=== PATIENT | male | born 1980 | race Caucasian/White ===

== ENCOUNTER 2023-07-13 14:02 | Outpatient (OUT) | payer OTHER, SELFPAY ==
--- NOTE | 2023-07-13 14:15 | XR_ITS ---
The [address] [address] Patient Name: NAT BACH MRN: [id number] date: 1980 Sex: M Assigned Patient Location: LAB Current Patient Location: LAB Accession/Order Number: [id number] Exam Date: 07/13/2023 14:18 Report Date: 07/13/2023 15:39 At the request of: CHRIS BUTCHER Procedure: XR hand RT 2V EXAM: XR hand RT 2V HISTORY: Right Hand Pain This is dictated under combined report. Please see report describing right wrist and right hand dictated the same day. Electronically authenticated by: CHELO SUAZO Date: 07/13/2023 15:39
--- NOTE | 2023-07-13 14:15 | XR_ITS ---
The [address] [address] Patient Name: NAT BACH MRN: [id number] date: 1980 Sex: M Assigned Patient Location: LAB Current Patient Location: LAB Accession/Order Number: [id number] Exam Date: 07/13/2023 14:18 Report Date: 07/13/2023 15:38 At the request of: CHRIS BUTCHER Procedure: XR wrist RT 2V PROCEDURE: XR WRIST AND HAND RT 2V DATE: 07/13/2023 1:18 PM CDT COMPARISONS: None CLINICAL INDICATION: Right Wrist Pain FINDINGS: There is no evidence of fractures or other osseous abnormalities. There is evidence of slight first carpometacarpal degenerative change. There is evidence of mild to moderate first interphalangeal degenerative change. No other osseous abnormalities are identified. XR/XR wrist RT 2V IMPRESSION: Right wrist and hand radiographs show no evidence of acute abnormalities. Mild degenerative changes as discussed above. Electronically authenticated by: CHELO SUAZO Date: 07/13/2023 15:38
== END 2023-07-13 14:03 | disposition home or self-care (01) ==
LOC: LAB 14:04
PROVIDERS: PCP Internal Medicine; Visit Provider Internal Medicine
DX: M25.531 Pain in right wrist (principal); M79.641 Pain in right hand
CPT/HCPCS: 73100; 73120

== ENCOUNTER 2023-07-14 06:36 | Outpatient (OUT) | payer OTHER, SELFPAY ==
[2023-07-14 07:01] LABS: Basophils Absolute Auto 0.1 10^3/uL (0.0-0.1); Basophils Percent Auto 1.2 % (0.2-2.0); Eosinophils Absolute Auto 0.2 10^3/uL (0.0-0.7); Eosinophils Percent Auto 3.6 % (0.9-7.0); Hemoglobin 15.1 g/dL (14.0-18.0); Immature Granulocytes Abs Auto 0.02 10^3/uL (0.00-0.03); Immature Granulocytes Pct Auto 0.3 % (0.0-0.5); Lymphocytes Absolute Auto 2.3 10^3/uL (1.2-3.8); Lymphocytes Percent Auto 40.2 % (20.5-60.0); Mean Corpuscular HGB Conc 34.3 g/dL (29.9-35.2); Mean Corpuscular Hemoglobin 28.9 pg (25.9-34.0); Mean Corpuscular Volume 84.1 fL (80.0-94.0); Mean Platelet Volume 9.5 fL (9.5-13.5); Monocytes Absolute Auto 0.5 10^3/uL (0.3-0.8); Monocytes Percent Auto 8.2 % (1.7-12.0); Neutrophils Absolute Auto 2.7 10^3/uL (1.4-6.5); Neutrophils Percent Auto 46.5 % (43.0-75.0); Platelet Count 253 10^3/uL (150-450); Red Blood Count 5.23 10^6/uL (4.70-6.10); White Blood Count 5.8 10^3/uL (4.0-11.0)
[2023-07-14 08:24] LABS: Alanine Aminotransferase 42 U/L (16-63); Albumin Level 3.6 g/dL (3.4-5.0); Alkaline Phosphatase 81 U/L (46-116); Anion Gap 14.7; Aspartate Amino Transferase 22 U/L (15-37); BUN Creatinine Ratio 22.8; Bilirubin Total 1.1 mg/dL (0.2-1.0); Calcium 8.4 mg/dL (8.5-10.1); Carbon Dioxide 24.4 mmol/L (21.0-32.0); Chloride 103 mmol/L (98-107); Chol HDL Ratio 3.9; Cholesterol 176 mg/dL (<=200); Estimated GFR (African America >60 (>=60); Estimated GFR (Non-African Ame >60 (>=60); Globulin 3.7 g/dL; Glucose 107 mg/dL (74-106); HDL Cholesterol 45 mg/dL (40-60); Potassium 4.1 mmol/L (3.5-5.1); Sodium 138 mmol/L (136-145); Total Protein 7.3 g/dL (6.4-8.2); Triglycerides 158 mg/dL (<=150); VLDL CHOLESTEROL 31.6 mg/dL
== END 2023-07-14 06:37 | disposition home or self-care (01) ==
LOC: LAB 06:36
PROVIDERS: PCP Internal Medicine; Visit Provider Internal Medicine
DX: Z00.00 Encounter for general adult medical examination without abnormal findings (principal)
CPT/HCPCS: 36415; 80053; 80061; 85025

== ENCOUNTER 2024-08-15 10:46 | Outpatient (OUT) | payer OTHER, SELFPAY ==
--- NOTE | 2024-08-15 11:03 | ECG_ITS ---
The [facility] Test Date: 2024-08-15 Pat Name: NAT BACH Department: Room: - Gender: Male [employer]or Relations Associate: : 1980 Requested By: Good Butcher Order Number: [id number] Reading MD: GOOD BUTCHER Measurements Intervals [place] Rate: 68 P: 14 IN: 158 QRS: 7 QRSD: 114 T: 13 QT: 388 QTc: 415 Interpretive Statements SINUS RHYTHM MODERATE INTRAVENTRICULAR CONDUCTION DELAY [110+ ms QRS DURATION] No previous ECG available for comparison Electronically Signed On 08-15-2024 23:10:42 EST by GOOD BUTCHER
--- NOTE | 2024-08-15 11:57 | P.GSHP_ITS ---
History of Present Illness History of Present Illness Chief complaint: umbilical hernia Narrative: Mr. Kuldeep Henry presents to preadmission testing for surgical clearance of umbilical hernia. He reports no complaints of pain today but does report pain and discomfort with lifting pushing and pulling intermittently he is scheduled for ventral hernia repair with Dr. Mckinnon on August 29, 2024 Review of Systems ROS Narrative REVIEW OF SYSTEMS: Negative except as stated in HPI, ten or more systems reviewed. Constitutional: No fever, chills, weakness ENT: Reports no drainage or discharge Cardiovascular: No edema, chest pain, palpitations, or activity intolerance Respiratory: No shortness of breath, cough, or wheezing. Musculoskeletal: No joint pain or swelling Gastrointestinal: No abdominal pain, constipation, diarrhea, or vomiting Genitourinary: No dysuria or hematuria Neurological: No numbness, tingling, weakness, or headache Psychiatric: No mood changes PFSH PFS Medical History (Updated 08/15/24 @ 12:07 by Nay Kumar) Unspecified injury of extensor muscle, fascia and tendon of right thumb at wrist and hand level, initial encounter ?S66.201A - Unspecified injury of extensor muscle, fascia and tendon of right thumb at wrist and hand level, initial encounter (ICD-10) Seasonal allergies ?J30.2 - Other seasonal allergic rhinitis (ICD-10) GERD (gastroesophageal reflux disease) ?K21.9 - Gastro-esophageal reflux disease without esophagitis (ICD-10) Constipation ?K59.00 - Constipation, unspecified (ICD-10) Ventral hernia ?K43.9 - Ventral hernia without obstruction or gangrene (ICD-10) Surgical History (Updated 08/15/24 @ 11:50 by Nay Kumar) H/O endoscopy ?Z98.890 - Other specified postprocedural states (ICD-10) History of amputation ?Z89.9 - Acquired absence of limb, unspecified (ICD-10) History of wisdom tooth extraction ?K08.409 - Partial loss of teeth, unspecified cause, unspecified class (ICD- 10) H/O vasectomy ?Z98.52 - Vasectomy status (ICD-10) Family History (Updated 08/15/24 @ 11:24 by Nay Kumar) Other Family history of Alzheimer's disease Family history of diabetes mellitus Social History (Updated 08/15/24 @ 11:12 by Nay Kumar) Within the past year, how often did you have a drink containing alcohol: 2-3 times a week Within the past year, how often did you have six or more drinks on one occasion: weekly Smoking status: Never smoker Non-prescribed substance use: cannabis (any form) Non-prescribed substance use details: less than 1 time per month Previous occupational history: [employer] / gut[employer] Highest level of school completed/degree received: some college, no degree Meds Home Medications and Allergies Allergies Allergy/AdvReac Type Severity Reaction Status Date / Time No Known Drug Allergies Allergy Verified 08/15/24 11:06 Exam Narrative Exam Narrative: Constitutional: Awake, alert, comfortable, well-appearing, nontoxic, interactive, vital signs as charted Head: Normocephalic, atraumatic Eyes: Conjunctiva and lids normal to inspection, pupils normal ENT: Tympanic membranes pearly dalal, nonerythematous, noninjected, naris patent, posterior oropharynx clear, oral mucosa moist Neck: Supple, normal appearance, normal range of motion, no meningeal signs, no lymphadenopathy Respiratory: No respiratory distress, breath sounds clear Cardiovascular: Regular rate and rhythm, strong and regular heart tones Abdomen: Nontender, normal bowel sounds, soft, no CVA tenderness, 2.5 cm size hernia easily reducible without incarceration Musculoskeletal: Normal gait, no swelling or edema Skin: No rashes or induration, no lesions, only visible skin inspected Neuro: No neurological deficits, normal sensation Psychiatric: Oriented ?3, normal affect Assessment and Plan Assessment and Plan (1) Ventral hernia: Qualifiers: Obstruction and gangrene presence: without obstruction or gangrene Qualified Code(s): K43.9 - Ventral hernia without obstruction or gangrene Plan Umbilical hernia without obstruction and without gangrene he is scheduled with Dr. Mckinnon for robotic assisted laparoscopic umbilical\ventral hernia repair with mesh procedure on August 29, 2024
--- NOTE | 2024-08-15 12:09 | PM.PRESUREVA ---
History of Present Illness History of Present Illness Chief complaint: umbilical hernia [facility] Medical History (Updated 08/15/24 @ 12:07 by Nay Kumar) Unspecified injury of extensor muscle, fascia and tendon of right thumb at wrist and hand level, initial encounter ?S66.201A - Unspecified injury of extensor muscle, fascia and tendon of right thumb at wrist and hand level, initial encounter (ICD-10) Seasonal allergies ?J30.2 - Other seasonal allergic rhinitis (ICD-10) GERD (gastroesophageal reflux disease) ?K21.9 - Gastro-esophageal reflux disease without esophagitis (ICD-10) Constipation ?K59.00 - Constipation, unspecified (ICD-10) Ventral hernia ?K43.9 - Ventral hernia without obstruction or gangrene (ICD-10) Surgical History (Updated 08/15/24 @ 11:50 by Nay Kumar) H/O endoscopy ?Z98.890 - Other specified postprocedural states (ICD-10) History of amputation ?Z89.9 - Acquired absence of limb, unspecified (ICD-10) History of wisdom tooth extraction ?K08.409 - Partial loss of teeth, unspecified cause, unspecified class (ICD-10) H/O vasectomy ?Z98.52 - Vasectomy status (ICD-10) Family History (Updated 08/15/24 @ 11:24 by Nay Kumar) Other Family history of Alzheimer's disease Family history of diabetes mellitus Social History (Updated 08/15/24 @ 11:12 by Nay Kumar) Within the past year, how often did you have a drink containing alcohol: 2-3 times a week Within the past year, how often did you have six or more drinks on one occasion: weekly Smoking status: Never smoker Non-prescribed substance use: cannabis (any form) Non-prescribed substance use details: less than 1 time per month Previous occupational history: [employer] / [employer] Highest level of school completed/degree received: some college, no degree Meds Home Medications and Allergies Allergies Allergy/AdvReac Type Severity Reaction Status Date / Time No Known Drug Allergies Allergy Verified 08/15/24 11:06 Assessment and Plan Assessment and Plan (1) Ventral hernia: Qualifiers: Obstruction and gangrene presence: without obstruction or gangrene Qualified Code(s): K43.9 - Ventral hernia without obstruction or gangrene Plan Umbilical hernia without obstruction and without gangrene he is scheduled with Dr. Mckinnon for robotic assisted laparoscopic umbilical\ventral hernia repair with mesh procedure on August 29, 2024
== END 2024-08-15 10:47 | disposition home or self-care (01) ==
LOC: PST 10:48
PROVIDERS: PCP Internal Medicine; Visit Provider Surgery
DX: Z01.810 Encounter for preprocedural cardiovascular examination (principal); K42.9 Umbilical hernia without obstruction or gangrene
CPT/HCPCS: 93005

== ENCOUNTER 2024-08-29 06:25 | Day surgery (SDC) | payer OTHER, SELFPAY ==
[2024-08-15 11:13] VITALS: BP 119/80; PULSE 76; TEMP 36.3; O2SAT 95; BMI 37.1
[2024-08-29] VITALS (15 sets, daily range): BP systolic 123–154; BP diastolic 72–107; PULSE 59–93; TEMP 36.1–36.4; O2SAT 93–97; BMI 37.5
--- OUTSIDE RECORDS SUMMARY | 2024-08-29 06:27 | XMS_ITS | CCD ---
Author Organization [facility] Inform ion Partnership [facility] Care Team Providers Care Bariatric Physician Name Role Phone ELLIOT, DR PEREZ Admitting Unavailable ELLIOT, DR PEREZ Attending Unavailable ELLIOT, DR PEREZ Primary Care Unavailable ELLIOT, DR PEREZ Consulting Unavailable ELLIOT, DR PEREZ Admitting Unavailable ELLIOT, DR PEREZ Attending Unavailable ELLIOT, DR PEREZ Primary Care Unavailable ELLIOT, DR PEREZ Consulting Unavailable RAMUANDER, TONIE Admitting Unavailable HIGHLANDER, TONIE Attending Unavailable ADRIANA, DR NEHA Cary Consulting Unavailable HIGHLANDER, TONIE Consulting Unavailable LEATHAM, HUSSEIN Admitting Unavailable LEATHAM, HUSSEIN Attending Unavailable ELLIOT, DR PEREZ Primary Care Unavailable GOOD ZARATE Primary Care Physician Good Zarate Unavailable Anna Weldon Attending Unavailable FLORIDALMA MATAMOROS Attending Unavailable Anna Weldon Attending Unavailable GOOD ZARATE Referring Unavailable Maria Luz Martínez Unavailable STEPHIE ALEXANDRA Attending Unavailable Allergies Allergy Classification Reported Allergen(s) Allergy Type Date of Onset Reaction(s) Facility (1 source) No Known Medication Allergies; Translations: [No Known Medication Allergies] Propensity to adverse reactions (disorder) [facility] Repository Medications Current Medications Medication Drug Class(es) Dates Sig (Normalized) Sig (Original) brompheniramine maleate 0.4 mg/ml / dextromethorphan hydrobromide 2 mg/ml / pseudoephedrine hydrochloride 6 mg/ml oral solution (5 sources) alpha-Adrenergic Agonist, Uncompetitive L-mpuvgf-X-aspartate Receptor Antagonist, Sigma-1 Agonist Start: 02-28-2023 take 10 mL by mouth every six hours Pseudoeph-Bromp hen-DM 30-2-10 MG/5ML 10 mL Orally every 6 hours for 5 days Feb, Active cephalexin 500 mg oral capsule (2 sources) Cephalosporin Antibacterial Start: 11-25-2022 take 1 capsule by mouth twice daily Keflex 500 mg Cap 500 mg = 1 cap(s), Oral, BID, start day prior to procedure, # 4 cap(s), Refills(s) 0, [id number] 180, cm, 11/25/22 10:15:00 EST, Height/Length Dosing, 125, kg, 11/25/22 10:15:00 EST, Weight Dosing Start Date: 11/25/22 Status: Ordered diazePAM 10 mg oral tablet (1 source) Benzodiazepine Start: 11-25-2022 Valium 10 mg Tab 10 mg = 1 tab(s), Oral, Once, PRN for anxiety, Take 1 hr prior to procedure, # 1 tab(s), Refills(s) 0, Pharmacy: [id number], 180, cm, 11/25/22 10:15:00 EST, Height/Length Dosing, 125, kg, 11/25/22 10:15:00 EST, Weight Dosing Start Date: 11/25/22 Status: Ordered meloxicam 15 mg oral tablet (3 sources) Nonsteroidal Anti-inflammatory Drug Start: 11-19-2022 meloxicam 15 mg Tab Refills(s) 0 Start Date: 11/19/22 Status: Ordered traMADol hydrochloride 50 mg oral tablet (2 sources) Opioid Agonist Start: 11-25-2022 take 1 tablet by mouth every six hours traMADOL 50 mg Tab 50 mg = 1 tab(s), Oral, q6hr, severe pain, # 6 tab(s), Refills(s) 0, [id number] 180, cm, 11/25/22 10:15:00 EST, Height/Length Dosing, 125, kg, 11/25/22 10:15:00 EST, Weight Dosing Start Date: 11/25/22 Status: Ordered Completed/Discontinued Medications Medication Drug Class(es) Dates Sig (Normalized) Sig (Original) amLODIPine 5 mg oral tablet (2 sources) Dihydropyridine Calcium Channel [place] Start: 06-07-2024 End: 06-07-2024 take 5 mg by mouth once daily Amlodipine Discontinued 5 MG PO Daily June 07, 2024 12:00am June 07, 2024 3:00pm Start: 08-24-2023 take 1 tablet by meli th every twenty-four hours amLODIPine Besylate 5 MG 1 tablet Orally Once a day for 30 days Jul, Active etodolac 500 mg oral tablet (5 sources) Nonsteroidal Anti-inflammatory Drug Start: 06-07-2024 End: 06-07-2024 take 500 mg by mouth twice daily Etodolac Discontinued 500 MG PO Twice daily June 07, 2024 12:00am June 07, 2024 3:00pm Start: 07-13-2023 take 1 tablet by meli th twice daily at mealtime as needed for pain Etodolac 500 MG 1 tablet with food Orally Twice a day as needed for pain for 30 days Jun, Active Problems Active Problems Problem Classification Problem Date Documented Date Episodic/Chronic Abdominal hernia (1 source) Umbilical hernia without obstruction or gangrene Episodic Contraceptive and procreative management (11 sources) Contraception status; Translations: [Encounter for other general counseling and advice on contraception] Onset: 11-25-2022 Episodic Essential hypertension (2 sources) Essential hypertension; Translations: [Essential (primary) hypertension] Chronic Immunizations and screening for infectious disease (1 source) Encounter for immunization; Translations: [ENCOUNTER FOR IMMUNIZATION] Onset: 09-04-2021 Episodic Other circulatory disease (6 sources) Elevated blood-pressure reading without diagnosis of hypertension; Translations: [Elevated blood-pressure reading, without diagnosis of hypertension] Episodic Other circulatory disease (1 source) Elevated blood-pressure reading, without diagnosis of hypertension Episodic Other connective tissue disease (6 sources) Pain in limb; Translations: [Pain in right foot] Episodic Other connective tissue disease (6 sources) Plantar fasciitis of right foot; Translations: [Plantar fascial fibromatosis] Episodic Other connective tissue disease (1 source) Pain in right hand Episodic Other nervous system disorders (1 source) Carpal tunnel syndrome; Translations: [Carpal tunnel syndrome, right upper limb] Chronic Other nervous system disorders (1 source) Carpal tunnel syndrome, right upper limb Chronic Other non-traumatic joint disorders (1 source) Pain in right wrist Episodic Other nutritional; endocrine; and metabolic disorders (6 sources) Body mass index 30+ - obesity; Translations: [Obesity, unspecified] Chronic Other nutritional; endocrine; and metabolic disorders (6 sources) Morbid obesity; Translations: [Morbid (severe) obesity due to excess calories] Chronic Other nutritional; endocrine; and metabolic disorders (1 source) Obesity, unspecified Chronic Other nutritional; endocrine; and metabolic disorders (1 source) Severe obesity; Translations: [Morbid (severe) obesity due to excess calories] Chronic Other nutritional; endocrine; and metabolic disorders (1 source) Body mass index 40+ - severely obese; Translations: [Body mass index (BMI) 40.0-44.9, adult] Chronic Other nutritional; endocrine; and metabolic disorders (1 source) Morbid (severe) obesity due to excess calories Chronic Other nutritional; endocrine; and metabolic disorders (1 source) Body mass index (BMI) 40.0-44.9, adult Chronic Other screening for suspected conditions (not mental disorders or infectious disease) (1 source) Encounter for screening for malignant neoplasm of colon Episodic Other upper respiratory infections (2 sources) Acute pharyngitis, unspecified; Translations: [Acute upper respiratory infection, unspecified] Episodic Sprains and strains (6 sources) Strain of muscle, fascia and tendon of lower back, initial encounter; Translations: [Acute myofascial strain of lumbosacral region, initial encounter] Episodic Unclassified (2 sources) CONTACT W/AND (SUSP) EXPOS COVID-19; Translations: [CONTACT W/AND (SUSP) EXPOS COVID-19] Onset: 09-01-2021 Past or Other Problems Problem Classification Problem Date Documented Da te Episodic/Chronic Other connective tissue disease (4 sources) Plantar fascial fibromatosis; Translations: [PLANTAR FASCIAL FIBROMATOSIS] Onset: 11-29-2020 Episodic Other connective tissue disease (4 sources) Pain in right foot; Translations: [PAIN IN RIGHT FOOT] Onset: 10-31-2020 Episodic Other connective tissue disease (1 source) Calcaneal spur, right foot; Translations: [CALCANEAL SPUR RIGHT FOOT] Onset: 11-06-2020 Episodic Unclassified (1 source) CONTACT W/AND (SUSP) EXPOS COVID-19; Translations: [CONTACT W/AND (SUSP) EXPOS COVID-19] Onset: 08-27-2021 Viral infection (10 sources) COVID-19; Translations: [Disease caused by 2019-nCoV] Onset: 09-03-2021 Results Test Name Value Interpretation Reference Range Facil ity Quick Strepon 02-28-2023 S. pyogenes Org specific cx Ql (Throat) Negative [employer] Other Quick Strep [employer] Other Patient Educationon 01-14-20 Patient Education Obstetrics and Gynecology Contraception Choices Contraception, also called control, refers to methods or devices that prevent . Hormonal methods Contraceptive implant A contraceptive implant is a thin, plastic tube that contains a hormone that prevents . It is different from an intrauterine device (IUD). It is inserted into the upper part of the arm by a health care provider. Implants can be effective for up to 3 years. Progestin-only injections Progestin-only injections are injections of progestin, a synthetic form of the hormone progesterone. They are given every 3 months by a health care provider. control pills control pills are pills that contain hormones that prevent . They must be taken once a day, preferably at the same time each day. A prescription is needed to use this method of contraception. control patch The control patch contains hormones that prevent . It is placed on the skin and must be changed once a week for three weeks and removed on the fourth week. A prescription is needed to use this method of contraception. Vaginal ring A vaginal ring contains hormones that prevent . It is placed in the vagina for three weeks and removed on the fourth week. After that, the process is repeated with a new ring. A prescription is needed to use this method of contraception. Emergency contraceptive Emergency contraceptives prevent after unprotected sex. They come in pill form and can be taken up to 5 days after sex. They work best the sooner they are taken after having sex. Most emergency contraceptives are available without a prescription. This method should not be used as your only form of control. Barrier methods Male condom A male condom is a thin sheath that is worn over the penis during sex. Condoms keep sperm from going inside a woman's body. They can be used with a sperm-killing substance (spermicide) to increase their effectiveness. They should be thrown away after one use. Female condom A female condom is a soft, loose-fitting sheath that is put into the vagina before sex. The condom keeps sperm from going inside a woman's body. They should be thrown away after one use. Diaphragm A diaphragm is a soft, dome-shaped barrier. It is inserted into the vagina before sex, along with a spermicide. The diaphragm blocks sperm from entering the uterus, and the spermicide kills sperm. A diaphragm should be left in the vagina for 6?8 hours after sex and removed within 24 hours. A diaphragm is prescribed and fitted by a health care provider. A diaphragm should be replaced every 1?2 years, after giving , after gaining more than 15 lb (6.8 kg), and after pelvic surgery. Cervical cap A cervical cap is a round, soft latex or plastic cup that fits over the cervix. It is inserted into the vagina before sex, along with spermicide. It blocks sperm from entering the uterus. The cap should be left in place for 6?8 hours after sex and removed within 48 hours. A cervical cap must be prescribed and fitted by a health care provider. It should be replaced every 2 years. Sponge A sponge is a soft, circular piece of polyurethane foam with spermicide in it. The sponge helps block sperm from entering the uterus, and the spermicide kills sperm. To use it, you make it wet and then insert it into the vagina. It should be inserted before sex, left in for at least 6 hours after sex, and removed and thrown away within 30 hours. Spermicides Spermicides are chemicals that kill or block sperm from entering the cervix and uterus. They can come as a cream, jelly, suppository, foam, or tablet. A spermicide should be inserted into the vagina with an applicator at least 10?15 minutes before sex to allow time for it to work. The process must be repeated every time you have sex. Spermicides do not require a prescription. Intrauterine contraception Intrauterine device (IUD) An IUD is a T-shaped device that is put in a woman's uterus. There are two types: ? Hormone IUD.This type contains progestin, a synthetic form of the hormone progesterone. This type can stay in place for 3?5 years. ? Copper IUD.This type is wrapped in copper wire. It can stay in place for 10 years. Permanent methods of contraception Female tubal ligation In this method, a woman's fallopian tubes are sealed, tied, or blocked during surgery to prevent eggs from traveling to the uterus. Hysteroscopic sterilization In this method, a small, flexible insert is placed into each fallopian tube. The inserts cause scar tissue to form in the fallopian tubes and block them, so sperm cannot reach an egg. The procedure takes about 3 months to be effective. Another form of control must be used during those 3 months. Male sterilization This is a procedure to tie off the tubes that carry sperm (vasectomy). After the procedure, the man ca (more content not included)... Normal [facility] Urology Office/Clinic Noteon 01-13-2023 Urology Office/Clinic Note Chief Complaint Pt is here for PO vasectomy HPI Staff Nat is a 42 y.o. male here for PO vasectomy. Previous Dx: encounter for vasectomy. S/P vasectomy done on 12/25/22. Dysuria: denies Incomplete bladder emptying: denies Hematuria: denies Frequency: denies Urgency: denies Nocturia: denies Stream: steady stream Leaking: denies Post void dripping: denies Wearing pads/ Depends: denies Urge incontinence: denies Stress incontinence: denies Incontinence without Sensory Awareness: denies Abdominal pain: denies Flank pain: denies Sexual complaints: _ History of Present Illness staff HPI reviewed and agree. Review of Systems PHQ Score Initial Depression Screen Score: 0 no fever, chills, malaise, myalgia. no rash/lesions. no chest pain, palpitations, or SOB. no abdominal pain, nausea, vomiting. no unilateral calf swelling, redness, pain Physical Exam Vitals & Measurements HT: 71 in HT: 180 cm WT: 125 kg WT: 275 lb BMI: 38.58 General: nontoxic, NAD Mouth: moist mucosa Lungs: normal respiratory effort Cardio: regular rate, good distal perfusion Abdomen: nondistended, no suprapubic distention or tenderness, no CVA tenderness Neurologic: Grossly normal Skin: No rashes or suspicious lesions Assessment/Plan 1. S/P vasectomy (Z98.52: Vasectomy status) S/P vasectomy done on 12/25/22. Pt is doing well since his procedure. Healing well. Instructed on proper SA collection/submissi on. Aware that he is not considered sterile until advised by our office after results of SA reviewed. F/u PRN. Follow-up With When Contact Information SHILOH SKINNER, FLORIDALMA Quintero, URL [id number] [place] [id number] [phone] Additional Instructions: Patient Education Contraception Choices Sonal Chapman personally scribed for Floridalma Matamoros PA-C on 01/13/2023 13:37:11. . Documentation recorded by the scribpeyman Jung accurately reflects the services(s) I performed and decisions made by me. Authenticated by Floridalma Matamoros PA-C on 01/13/2023 13:38:32. Problem List/Past Medical History Ongoing Encounter for vasectomy S/P vasectomy Historical No qualifying data Procedure/Surgical History Vasectomy (12/25/2022). Medications meloxicam 15 mg Tab Allergies No Known Allergies No Known Medication Allergies Social History Alcohol Beer, 1-2 times per month, 11/25/2022 Tobacco Never (less than 100 in lifetime) Tobacco Use:. Never Smokeless Tobacco Use:., 11/25/2022 Immunizations Vaccine Date Status Comments SARS-CoV-2 (COVID-19) mRNA-1273 vaccine 09/22/2021 Recorded 2022-11-19: TPV40 SARS-CoV-2 (COVID-19) mRNA-1273 vaccine 08/23/2021 Recorded 2022-11-19: TPV40 influenza virus vaccine, inactivated 10/17/2016 Recorded diphtheria/pertussi s, acel/tetanus adult 09/25/2016 Recorded diphtheria/pertussi s, acel/tetanus adult 09/13/2014 Recorded Normal [facility] Comment on above: Result Comment: Electronically Signed By : FLORIDALMA MATAMOROS PA-C\.br\Date and Time Signed: 01/13/23 13:38 EDT\.br\Electronically Co-Signed By: Sonal Jung MA.br\Date and Time Co-Signed: 01/13/23 13:37 EDT Consent for Procedure/Surger yon 12-28-2022 Consent for Procedure/Surger y [id number] [id number] [facility] Urology Office/Clinic Noteon 12-25-2022 Urology Office/Clinic Note Chief Complaint Vasectomy HPI Staff This is a 42 year old male here for Vasectomy. History of Present Illness Tests reviewed: none. I have reviewed the previous health record information and history for this patient from Dr. Weldon. I have reviewed and verified the staff HPI to be accurate for this encounter. There have been no associated fever, chills, flank pain, or blood in the urine. Denies any urinary infections since last encounter. Review of Systems PHQ Score Initial Depression Screen Score: 0 ROS - Provider Constitutional: denies weight loss, denies hot flashes. Eyes: denies eye problems. Gastrointestinal: denies nausea, denies vomiting. Cardiovascular: denies chest pain or angina. Integumentary: no dryness Musculoskeletal: denies musculoskeletal symptoms. ENMT: denies otolaryngeal symptoms. Respiratory: no shortness of breath. Heme/Lymph: denies easy bleeding tendency, denies easy bruising tendency. Psychiatric: no confusion, no anxiety. Genitourinary: See HPI. Physical Exam Vitals & Measurements HT: 71 in HT: 180 cm WT: 125 kg WT: 275 lb BMI: 38.58 General Appearance: alert, no distress, well nourished, well developed male. Genitourinary: normal scrotum, normal testes, normal urethra, normal epididymis, normal vas deferens/spermatic cord- thicker cords Flank Pain: none. Bladder: nonpalpable. Procedure PREOPERATIVE DIAGNOSIS: Undesired fertility. POSTOPERATIVE DIAGNOSIS: Undesired fertility. PROCEDURE PERFORMED: Bilateral Vasectomy. ANESTHESIA: Local. ESTIMATED BLOOD LOSS: minimal BRIEF HISTORY: The patient is a 42 year-old gentleman with undesired fertility. He was counseled on all of his options and ultimately elected a vasectomy. He understood the risks of the procedure to include but not be limited to bleeding, pain, infection, injury to the testicle, surrounding structures, atrophy of the testicle, loss of testicular function, persistence of pain or need for further procedures. He understands he will need to use alternative method of contraception until his post-vasectomy semen analysis has been reviewed and he has been cleared by the physician. DESCRIPTION OF PROCEDURE: After informed consent was obtained, the patient was taken to the procedure room. The patient was placed in the supine position, taking care to pad all possible pressure points. A sterile prep and drape was performed in standard fashion for this procedure. The right vas deferens was easily palpated and delivered anteriorly. Local anesthetic was applied to the skin and vas deferens for a vasal block. This was repeated on the left side. Starting with the right, the vas was palpated, delivered anteriorly and a ring clamp was applied to isolate the vas. With the overlying skin on tension, a single tip of the sharp dissecting forceps was used to make a puncture into the vas, taking care not to transect it. The forceps were used to spread the opening to expose the vas and deliver it through the opening. The loop of vas was regrasped using a ring clamp and a window was created by dissecting the fascia and vessels away from the vas. I proceeded with mucosal electrocautery of both ends with fascial interposition. Elongated tip wire loop electrocautery was inserted at least 1 cm into the lumen of the abdominal side of the vas to cauterize and occlude the lumen. The vas was transected and the abdominal end of the vas was allowed to retract within the sheath. I proceeded with closing the fascial sheath over the abdominal end by grasping the fascial edges and applying a metal clip. Minimal length of the testicular end was excised until intact vas was encountered, electrocautery tip was inserted at least 1 cm into the testicular side lumen for occlusion. Again, the area was inspected to ensure adequate hemostasis and the vas was allowed to retract back into the wound. The left vas was isolated and occluded by the steps above in the same fashion. Pressure was held on the opening for 5 minutes with gauze and inspected to ensure hemostasis was achieved. Sterile gauze and tape were applied over the surgical site. Scrotal support was applied. The patient tolerated the procedure well. Assessment/Plan 1. Encounter for vasectomy (Z30.2: Encounter for sterilization) Pt had IO vasectomy today without complications. The patient tolerated the procedure well without complications. He should refrain from strenuous activity for the next 4-5 days and ice the scrotum as needed. The antibiotic course should be completed. The post-vasectomy instruction sheet is given to the patient. He should call for any post-seismograph operator helper problems. Pain medicines have been provided. He is aware that he is not sterile until he has a negative semen analysis which will be checked after about 2-3 months and after 20-30 ejaculations. He should deliver the semen specimen to the lab within 30 min. of ejaculation and he will call one week later to get the results. Follow up if needed. Pt underst (more content not included)... Normal [facility] Comment on above: Result Comment: Electronically Signed By : Anna Weldon MD\.br\Date and Time Signed: 12/25/22 08:25 EDT\.br\Electronically Co-Signed By: Caty Corona\.br\Date and Time Co-Signed: 12/25/22 07:49 EDT Patient Educationon 12-25-19 Patient Education Urology Vasectomy, Care After This sheet gives you information about how to care for yourself after your procedure. Your health care provider may also give you more specific instructions. If you have problems or questions, contact your health care provider. What can I expect after the procedure? After your procedure, it is common to have: ? Mild pain, swelling, redness, or discomfort in your scrotum. ? Some blood coming from your incisions or puncture sites for one or two days. ? Blood in your semen. Follow these instructions at home: Medicines ? Take [id number] and prescription medicines only as told by your health care provider. ? Avoid taking NSAIDs such as aspirin and ibuprofen, because these medicines can make bleeding worse. Activity ? For the first 2 days after surgery, avoid physical activity and exercise that require a lot of energy. Ask your health care provider what activities are safe for you. ? Do not participate in sports or perform heavy physical labor until your pain has improved, or until your health care provider says it is okay. ? Do not ejaculate for at least 1 week after the procedure, or as long as directed. ? You may resume sexual activity 7?10 days after your procedure, or when your health care provider approves. Use a different method of control (contraception) until you have had test results that confirm that there is no sperm in your semen. Scrotal support ? Use scrotal support, such as a jock strap or underwear with a supportive pouch, as needed for one week after your procedure. ? If you feel discomfort in your scrotum, you may remove the scrotal support to see if the discomfort is relieved. Sometimes scrotal support can press on the scrotum and cause or worsen discomfort. ? If your skin gets irritated, you may add some germ-free (sterile), fluffed bandages or a clean washcloth to the scrotal support. General instructions ? Put ice on the injured area: ? Put ice in a plastic bag. ? Place a towel between your skin and the bag. ? Leave the ice on for 20 minutes, 2?3 times a day. ? Check your incisions or puncture sites every day for signs of infection. Check for: ? Redness, swelling, or pain. ? Fluid or blood. ? Warmth. ? Pus or a bad smell. ? Leave stitches (sutures) in place. The sutures will dissolve on their own and do not need to be removed. ? Keep all follow-up visits as told by your health care provider. This is important because you will need a test to confirm that there is no sperm in your semen. Multiple ejaculations are needed to clear out sperm that were beyond the vasectomy site. You will need one test result showing that there is no sperm in your semen before you can resume unprotected sex. This may take 2?4 months after your procedure. ? Do not drive for 24 hours if you were given a sedative to help you relax. Contact a health care provider if: ? You have redness, swelling, or more pain around your incision or puncture site, or in your scrotum area in general. ? You have bleeding from your incision or puncture site. ? You have pus or a bad smell coming from your incision or puncture site. ? You have a fever. ? Your incision or puncture site opens up. Get help right away if: ? You develop a rash. ? You have difficulty breathing. Summary ? After your procedure it is common to have mild pain, swelling, redness, or discomfort in your scrotum. ? Avoid physical activity and exercise that requires a lot of energy for the first 2 days after surgery. ? Put ice on the injured area. Leave the ice on for 20 minutes, 2?3 times a day. ? Do not drive for 24 hours if you were given a sedative to help you relax. This information is not intended to replace advice given to you by your health care provider. Make sure you discuss any questions you have with your health care provider. Document Released: 04/02/2006 Document Revised: 08/26/2018 Document Reviewed: 12/10/2017 [employer] Patient Education ? 2020 [employer]. Normal [facility] Formson 11-26-2022 Forms [id number]:127 Normal [facility] Ambulatory Visit Summaryon 0 11-25-2022 Ambulatory Visit Summary NAT BACH :1980 Visit Date:11/25/2022 Ambulatory Visit Instructions Your Diagnosis Vasectomy evaluation Tests Performed Urnls Dip Stick Auto w/o Microscopy POC 96303 Your Care Team Attending Physician - Shiraz PRADO, Anna Zepeda Primary Care Physician - GOOD ZARATE DO Referring Physician - GOOD ZARATE DO This Is Your Medications List cephalexin (Keflex 500 mg Cap) diazepam (Valium 10 mg Tab) tramadol (traMADOL 50 mg Tab) Contact prescribing physician if questions or concerns meloxicam (meloxicam 15 mg Tab) Discharge Vitals Blood Pressure 142/80 Height 180 cm Height 71 in Weight 125 kg Weight 275 lb BMI 38.58 What to do next Scheduled Follow-Up Appointments Wednesday 7:30 AM EDT With: Anna Weldon MD Where: [facility] [address] [place] [address]- \.br\ You Need to Schedule the Following Appointments\.br \ Follow Up with Anna Weldon MD, URL, URO When: \.br\ Where:\.br\ Medications\.br\ What How Much When Instructions\.br \ New cephalexin (Keflex 500 mg Cap) 1 Capsules By Mouth 2 times a day start day prior to procedure Pickup at [facility]/pharmacy #[id number]\.br\ New diazepam (Valium 10 mg Tab) 1 Tablets By Mouth Once as needed for for anxiety Take 1 hr prior to procedure Pickup at [facility]/pharmacy #[id number]\.br\ New tramadol (traMADOL 50 mg Tab) 1 Tablets By Mouth Every 6 hours severe pain Pickup at [facility]/pharmacy #[id number]\.br\ Unchanged meloxicam (meloxicam 15 mg Tab) Contact prescribing physician if questions or concerns \.br\ Pharmacy Information\.br\ [facility]/pharmacy #[id number]: [address], [place] [id number] [phone]\.br\ Test Results\.br\ Urnls Dip Stick Auto w/o Microscopy POC 26150 (11/25/2022)\.br \ Bilirubin Urine Dipstick - Negative\.br\ Blood Urine Dipstick - Negative\.br\ Glucose Urine Dipstick - Negative\.br\ Ketones Urine Dipstick - Negative\.br\ Leukocytes Urine Dipstick - Negative\.br\ Nitrite Urine Dipstick - Negative\.br\ Protein Urine Dipstick - Negative\.br\ Specific [place] Urine Dipstick - >=1.030\.br\ Urine Appearance Urine Dipstick - Clear\.br\ Urine Color Urine Dipstick - Light yellow\.br\ Urobilinogen Urine Dipstick - Normal 0.2-1 EU/dl\.br\ pH Urine Dipstick - 5.5\.br\ Allergies\.br\ No Known Allergies\.br\ No Known Medication Allergies\.br\ Education Materials\.br\ Vasectomy, Care After\.br\ This sheet gives you information about how to care for yourself after your procedure. Your health care provider may also give you more specific instructions. If you have problems or questions, contact your health care provider.\.br\ What can I expect after the procedure?\.br\ After your procedure, it is common to have:\.br\ ? \.br\ Mild pain, swelling, redness, or discomfort in your scrotum.\.br\ ? \.br\ Some blood coming from your incisions or puncture sites for one or two days.\.br\ ? \.br\ Blood in your semen.\.br\ Follow these instructions at home:\.br\ Medicines\.br\ \.br\ ? \.br\ Take kulq-jym-wqtinoa and prescription medicines only as told by your health care provider.\.br\ ? \.br\ Avoid taking NSAIDs such as aspirin and ibuprofen, because these medicines can make bleeding worse.\.br\ Activity\.br\ ? \.br\ For the first 2 days after surgery, avoid physical activity and exercise that require a lot of energy. Ask your health care provider what activities are safe for you.\.br\ ? \.br\ Do not participate in sports or perform heavy physical labor until your pain has improved, or until your health care provider says it is okay.\.br\ ? \.br\ Do not ejaculate for at least 1 week after the procedure, or as long as directed.\.br\ ? \.br\ You may resume sexual activity 7?10 days after your procedure, or when your health care provider approves. Use a different method of control (contraception) until you have had test results that confirm that there is no sperm in your semen.\.br\ Scrotal support\.br\ ? \.br\ Use scrotal support, such as a jock strap or underwear with a supportive pouch, as needed for one week after your procedure.\.br\ ? \.br\ If you feel discomfort in your scrotum, you may remove the scrotal support to see if the discomfort is relieved. Sometimes scrotal support can press on the scrotum and cause or worsen discomfort.\.br\ ? \.br\ If your skin gets irritated, you may add some germ-free (sterile), fluffed bandages or a clean washcloth to the scrotal support.\.br\ General instructions\.br \ ? \.br\ Put ice on the injured area:\.br\ ? \.br\ Put ice in a plastic bag.\.br\ ? \.br\ Place a towel between your skin and the bag.\.br\ ? \.br\ Leave the ice on for 20 minutes, 2?3 times a day.\.br\ ? \.br\ Check your incisions or puncture sites every day for signs of infection. Check for:\.br\ ? \.br\ Redness, swelling, or pain.\.br\ ? \.br\ Fluid or blood.\.br\ ? \.br\ Warmth.\.br\ ? \.br\ Pus or a bad smell.\.br\ ? \.br\ Leave stitches (sutures) in place. The sutures will dissolve on their own and do not need to be removed.\.br\ ? \.br\ Keep all follow-up visits as told by your health care provider. This is important because you will need a test to confirm that there is no sperm in your semen. Multiple ejaculations are needed to clear out sperm that were beyond the vasectomy site. You will need one test result showing that there is no sperm in your semen before you can resume unprotected sex. This may take 2?4 months after your procedure.\.br\ ? \.br\ Do not drive for 24 hours if you were given a sedative to help you relax.\.br\ Contact a health care provider if:\.br\ ? \.br\ You have redness, swelling, or more pain around your incision or puncture site, or in your scrotum area in general.\.br\ ? \.br\ You have bleeding from your incision or puncture site.\.br\ ? \.br\ You have pus or a bad smell coming from your incision or puncture site.\.br\ ? \.br\ You have a fever.\.br\ ? \.br\ Your incision or puncture site opens up.\.br\ Get help right away if:\.br\ ? \.br\ You develop a rash.\.br\ ? \.br\ You have difficulty breathing.\.br\ Summary\.br\ ? \.br\ After your procedure it is common to have mild pain, swelling, redness, or discomfort in your scrotum.\.br\ ? \.br\ Avoid physical activity and exercise that requires a lot of energy for the first 2 days after surgery.\.br\ ? \.br\ Put ice on the injured area. Leave the ice on for 20 minutes, 2?3 times a day.\.br\ ? \.br\ Do not drive for 24 hours if you were given a sedative to help you relax.\.br\ This information is not intended to replace advice given to you by your health care provider. Make sure you discuss any questions you have with your health care provider.\.br\ Document Released: 04/02/2006 Document Revised: 08/26/2018 Document Reviewed: 12/10/2017 Elsevier Patient Education ? 2020 [employer].\.br\ \.br\ [facility] Patient Educationon 11-26-19 23 Patient Education Urology Vasectomy, Care After This sheet gives you information about how to care for yourself after your procedure. Your health care provider may also give you more specific instructions. If you have problems or questions, contact your health care provider. What can I expect after the procedure? After your procedure, it is common to have: ? Mild pain, swelling, redness, or discomfort in your scrotum. ? Some blood coming from your incisions or puncture sites for one or two days. ? Blood in your semen. Follow these instructions at home: Medicines ? Take ehtz-xbd-tlzkcrg and prescription medicines only as told by your health care provider. ? Avoid taking NSAIDs such as aspirin and ibuprofen, because these medicines can make bleeding worse. Activity ? For the first 2 days after surgery, avoid physical activity and exercise that require a lot of energy. Ask your health care provider what activities are safe for you. ? Do not participate in sports or perform heavy physical labor until your pain has improved, or until your health care provider says it is okay. ? Do not ejaculate for at least 1 week after the procedure, or as long as directed. ? You may resume sexual activity 7?10 days after your procedure, or when your health care provider approves. Use a different method of control (contraception) until you have had test results that confirm that there is no sperm in your semen. Scrotal support ? Use scrotal support, such as a jock strap or underwear with a supportive pouch, as needed for one week after your procedure. ? If you feel discomfort in your scrotum, you may remove the scrotal support to see if the discomfort is relieved. Sometimes scrotal support can press on the scrotum and cause or worsen discomfort. ? If your skin gets irritated, you may add some germ-free (sterile), fluffed bandages or a clean washcloth to the scrotal support. General instructions ? Put ice on the injured area: ? Put ice in a plastic bag. ? Place a towel between your skin and the bag. ? Leave the ice on for 20 minutes, 2?3 times a day. ? Check your incisions or puncture sites every day for signs of infection. Check for: ? Redness, swelling, or pain. ? Fluid or blood. ? Warmth. ? Pus or a bad smell. ? Leave stitches (sutures) in place. The sutures will dissolve on their own and do not need to be removed. ? Keep all follow-up visits as told by your health care provider. This is important because you will need a test to confirm that there is no sperm in your semen. Multiple ejaculations are needed to clear out sperm that were beyond the vasectomy site. You will need one test result showing that there is no sperm in your semen before you can resume unprotected sex. This may take 2?4 months after your procedure. ? Do not drive for 24 hours if you were given a sedative to help you relax. Contact a health care provider if: ? You have redness, swelling, or more pain around your incision or puncture site, or in your scrotum area in general. ? You have bleeding from your incision or puncture site. ? You have pus or a bad smell coming from your incision or puncture site. ? You have a fever. ? Your incision or puncture site opens up. Get help right away if: ? You develop a rash. ? You have difficulty breathing. Summary ? After your procedure it is common to have mild pain, swelling, redness, or discomfort in your scrotum. ? Avoid physical activity and exercise that requires a lot of energy for the first 2 days after surgery. ? Put ice on the injured area. Leave the ice on for 20 minutes, 2?3 times a day. ? Do not drive for 24 hours if you were given a sedative to help you relax. This information is not intended to replace advice given to you by your health care provider. Make sure you discuss any questions you have with your health care provider. Document Released: 04/02/2006 Document Revised: 08/26/2018 Document Reviewed: 12/10/2017 [employer] Patient Education ? 2019 [employer]. [facility] Covid-19 PCR (CVDTBH)on SARS-CoV-2 (COVID-19) RNA GABRIELLE+probe Ql (Unsp spec) Detected Critically abnormal NOT DETECTED [facility] Comment on above: Result Comment: This test is not yet tarun roved or cleared by the [place] FDA. When there are no FDA-approved or cleared tests available, and other criteria are met, FDA can make tests available under an emergency access mechanism called an Emergency Use Authorization (EUA). The EUA for this test is supported by the Geotechnical Operating Engineer of Health and Human Service's (HHS's) declaration that circumstances exist to justify the emergency use of in vitro diagnostics for the detection and/or diagnosis of the virus that causes COVID-19. This EUA will remain in effect (meaning this test can be used) for the duration of the COVID-19 declaration justifying emergency of IVDs, unless it is terminated or revoked by FDA (after which the test may no longer be used). Performed By: #### [facility] #### [facility] [address] [place] [address] Dr. Addie Orosco Vital Signs Date Time Vital Sign Value Performing Clinician Facility 06-07-2024 15:00-0400 Body height 177.8 cm [facility] 06-07-2024 15:00-0400 Body mass index (BMI) [Ratio] 37.7 kg/m2 [facility] 06-07-2024 15:00-0400 Body weight 119.35 kg [facility] 06-07-2024 15:00-0400 Diastolic blood pressure 80 mm[Hg] [facility] 06-07-2024 15:00-0400 Heart rate 91 /min [facility] 06-07-2024 15:00-0400 Respiratory rate 12 /min [facility] 06-07-2024 15:00-0400 Systolic blood pressure 124 mm[Hg] [facility] 08-24-2023 15:00-0500 Body height 177.8 cm Good Ball Other [facility] Other 08-24-2023 15:00-0500 Body mass index (BMI) [Ratio] 41.38 kg/m2 Good Ball Other [facility] Other 08-24-2023 15:00-0500 Body weight 130.82 kg Good Ball Other [facility] Other 08-24-2023 15:00-0500 Diastolic blood pressure 93 mm[Hg] Good Ball Other [facility] Other 08-24-2023 15:00-0500 Respiratory rate 12 /min Good Ball Other [facility] Other 08-24-2023 15:00-0500 Systolic blood pressure 143 mm[Hg] Good Ball Other [facility] Other 07-13-2023 08:45-0400 Body height 177.8 cm Good Ball Other [facility] Other 07-13-2023 08:45-0400 Body mass index (BMI) [Ratio] 41.23 kg/m2 Good Ball Other [facility] Other 07-13-2023 08:45-0400 Body weight 130.36 kg Good Ball Other [facility] Other 07-13-2023 08:45-0400 Diastolic blood pressure 102 mm[Hg] Good Ball Other [facility] Other 07-13-2023 08:45-0400 Respiratory rate 12 /min Good Ball Other [facility] Other 07-13-2023 08:45-0400 Systolic blood pressure 155 mm[Hg] Good Ball Other [facility] Other 02-28-2023 10:10-0400 Body height 177.8 cm Maria Luz Martínez Other [facility] Other 02-28-2023 10:10-0400 Body mass index (BMI) [Ratio] 39.71 kg/m2 Maria Luz Martínez Other [facility] Other 02-28-2023 10:10-0400 Body temperature 98.6 [degF] Maria Luz Martínez Other [facility] Other 02-28-2023 10:10-0400 Body weight 125.56 kg Maria Luz Mauricio Other [facility] Other 02-28-2023 10:10-0400 Diastolic blood pressure 74 mm[Hg] Maria Luz Martínez Other [facility] Other 02-28-2023 10:10-0400 Respiratory rate 18 /min Maria Luz Martínez Other [facility] Other 02-28-2023 10:10-0400 SaO2% (BldA) [Mass fraction] 98 % Maria Luz Martínez Other [facility] Other 02-28-2023 10:10-0400 Systolic blood pressure 125 mm[Hg] Maria Luz Martínez Other [facility] Other 11-25-2022 10:07-0500 Blood Pressure Location Anna Lue [facility] 11-25-2022 10:07-0500 Diastolic blood pressure 80 mm[Hg] Anna Lue [facility] 11-25-2022 10:07-0500 Systolic blood pressure 142 mm[Hg] Anna Lue [facility] 11-16-2022 14:30-0500 Body height 177.8 cm Good Ball Other [facility] Other 11-16-2022 14:30-0500 Body mass index (BMI) [Ratio] 39.91 kg/m2 Good Ball Other [facility] Other 11-16-2022 14:30-0500 Body weight 126.19 kg Good Ball Other [facility] Other 11-16-2022 14:30-0500 Diastolic blood pressure 84 mm[Hg] Good Elliot Other [facility] Other 11-16-2022 14:30-0500 Respiratory rate 12 /min Good Ball Other [facility] Other 11-16-2022 14:30-0500 Systolic blood pressure 122 mm[Hg] Good Zarate Other [facility] Other Encounters Encounter Date Encounter Type Care Provider Facility Start: 06-12-2024 End: 06-12-2024 ambulatory STEPHIE ALEXANDRA Not Available Start: 06-07-2024 End: 06-07-[address] [facility] Work Phone: Start: 06-07-2024 End: 06-07-2024 Patient encounter procedure [facility] Work Phone: Start: 08-24-2023 End: 08-24-2023 ambulatory Good Zarate Other [facility] Other Start: 08-24-2023 Office outpatient vi sit 15 minutes Good Ball [facility] Start: 07-28-2023 End: 07-28-2023 ambulatory Good Zarate Other [facility] Other Start: 07-28-2023 Telephone encounter Good Ball [facility] Start: 07-15-2023 End: 07-15-2023 ambulatory Good Ball Other [facility] Other Start: 07-15-2023 Telephone encounter Good Ball [facility] Start: 07-13-2023 End: 07-13-2023 ambulatory Good Ball Other [facility] Other Start: 07-13-2023 Encounter for genera l adult medical examination without abnormal findings Good Ball [facility] Start: 07-13-2023 Periodic preventive med est patient 40-64yrs Good Zarate [facility] Start: 02-28-2023 End: 02-28-2023 ambulatory Maria Luz Martínez Other [facility] Other Start: 02-28-2023 Office outpatient vi sit 25 minutes Maria Luz Martínez [facility] Start: 01-13-2023 End: 01-14-2023 ambulatory FLORIDALMA Quintero SHILOH Facility:[facility] [place] Start: 01-13-2023 End: 01-13-2023 Patient encounter procedure FLORIDALMA Peyman JCRY [facility] Start: 12-25-2022 End: 12-26-2022 ambulatory Anna M. Lue Facility:[facility] Start: 12-25-2022 End: 12-25-2022 Patient encounter procedure Anna M. Lue [facility] Start: 11-25-2022 End: 11-26-2022 ambulatory Anna M. Lue Facility:[facility] Start: 11-25-2022 End: 11-25-2022 Patient encounter procedure Anna M. Lue [facility] Start: 11-19-2022 ambulatory Anna Lue Facility:[facility] Start: 11-16-2022 End: 11-16-2022 ambulatory Good Zarate Other [facility] Other Start: 11-16-2022 Office outpatient vi sit 15 minutes Good Zarate [facility] Start: 09-03-2021 End: 09-03-[address] GOOD ZARATE Facility:[facility] Start: 08-27-2021 End: 08-27-[address] GOOD ZARATE Facility:[facility] Start: 11-29-2020 End: 06-09-2021 ambulatory HUSSEIN NESBITT Facility:[facility] Start: 10-31-2020 End: 11-01-2020 ambulatory [facility] Facility:[facility] Procedures Date Procedure Procedure Detail Performing Clinician Start: 01-13-2023 H/O: vasectomy FLORIDALMA MATAMOROS Start: 12-25-2022 Vasectomy Anna Lupeyman Immunizations Immunization Date Immunization Notes Care Provider Cortney mayer 09-22-2021 SARS-CoV-2 (COVID-19 ) mRNA-1273 vaccine Anna Lue [facility] Comment on above: Result Comment: 2022: [id number] 08-23-2021 SARS-CoV-2 (COVID-19 ) mRNA-1273 vaccine Anna Lue [facility] Comment on above: Result Comment: 2022: TPV40 10-17-2016 influenza virus vaccine, split virus (incl. purified surface antigen) Good Zarate Other [facility] Other 10-17-2016 influenza virus vaccine, unspecified formulation Anna Lue [facility] 09-25-2016 diphtheria, tetanus toxoids and acellular pertussis vaccine, unspecified formulation Good Zarate Other [facility] 09-25-2016 tetanus toxoid, reduced diphtheria toxoid, and acellular pertussis vaccine, adsorbed Anna Lue [facility] 09-13-2014 tetanus toxoid, reduced diphtheria toxoid, and acellular pertussis vaccine, adsorbed Anna Lue [facility] Payers Date Payer Category Payer Unknown [id number] 2022 Unknown [id number] 1980 Unknown [id number] 2.16.84 [id number] 1980 Unknown [id number] 2.16.84 [id number] 1980 Unknown [id number] 2.16.84 [id number] 1980 Unknown [id number] 2.16.84 [id number] 1980 Unknown [id number] 2.16.8 [id number] 1980 Unknown [id number] 2.16.8 [id number] 1980 Unknown [id number] 2.16.8 [id number] 1980 Unknown [id number] 2.16.84 [id number] 1959 Unknown [id number] Social History Date Type Detail Facility Start: 11-25-2022 Tobacco smoking status Never s moked tobacco (finding) [facility] Tobacco smoking status Never [facility] Sex Assigned At Male [facility] Start: 1980 Sex Assigned At Male [facility] Functional Status Date Assessment Result Facility 01-13-2023 Functional Status N/A [facility] 12-25-2022 Functional Status N/A [facility] 11-25-2022 Functional Status N/A [facility] Clinical Notes 10-31-2020 to 08-24-2023 Note Date & Type Note Facility 08-24-2023 Evaluation note Encounter Date Diagnosis Assessment Notes Jul, Primary hypertension (ICD-10 - I10) This patient is instructed to consume a healthy, low-fat, low-salt diet. They are also encouraged to continue exercise to achieve/mainta in a normal BMI. Patient is instructed on home BP measurements: - rest for 5 minutes w/o talking- positioned w/ feet on floor and arm supported- average best 2/3 readings w/ goal < 135/85 Stop by office for recheck after couple weeks Jul, Carpal tunnel syndrome of right wrist (ICD-10 - G56.01) Night cockup splint. COntinue Etodolac as needed. Reassured w/ mild CTS found on EMG Jul, Morbid (severe) obesity due to excess calories (ICD-10 - E66.01) This patient has been instructed on a low-fat, high-fiber diet. They are instructed to reduce calories, portion sizes and snacks. It is recommended that they exercise for 30 minutes, 3-5 times weekly. Jul, Body mass index [BMI] 40.0-44.9, adult (ICD-10 - Z68.41) [facility] Other 10-17-2023 Evaluation note* Encounter Date Diagnosis Assessment Notes Treatment Notes Treatment Clinical Notes Jun, Wellness examination (ICD-10 - Z00.00) Healthy diet and exercise. Reviewed age-appropriate preventive testing recommended. Jun, Right hand pain (ICD-10 - M79.641) Lodine and Voltaren Gel Ice, heat and rest Jun, Right wrist pain (ICD-10 - M25.531) Lodine and Voltaren Gel Ice, heat and rest Jun, Screening for colon cancer (ICD-10 - Z12.11) Asymptomatic, low risk patient. Denies bowel habit changes Denies melena or hematochezia Jun, Elevated BP without diagnosis of hypertension (ICD-10 - R03.0) This patient is instructed to consume a healthy, low-fat, low-salt diet. They are also encouraged to continue exercise to achieve/maintain a normal BMI Patient is instructed on home BP measurements: - rest for 5 minutes w/o talking- positioned w/ feet on floor and arm supported- average best 2/3 readings w/ goal < 135/85 [employer] Other 06-04-2023 Evaluation note* Encounter Date Diagnosis Assessment Notes Treatment Notes Treatment Clinical Notes Feb, Sore throat (ICD-10 - J02.9) Feb, Viral URI (ICD-10 - J06.9) Advised patient that rapid strep test was negative today in office. Patient declines other testing at this time. Advised patient that will treat as viral URI. Supportive care as directed, increase fluids and rest, Tylenol/Motrin as directed, rx of Bromfed, cool mist humidifier, throat lozenges. Discussed infection control practices such as good hand washing and mask wearing. Patient to follow up with PCP if symptoms persist or worsen despite treatment. Immediate eval for SOB, difficulty breathing, chest pain, fevers that do not break with antipyretic or any other concerning symptoms as reviewed on patient education handout. Patient verbalizes understanding and is agreeable to treatment plan. Patient left in stable condition [facility] Other 04-19-2023 Hospital Discharge instructions Patient Education 01/13/2023 13:32:14 Contraception Choices Contraception Choices Contraception, also called control, refers to methods or devices that prevent . Hormonal methods Contraceptive implant A contraceptive implant is a thin, plastic tube that contains a hormone that prevents . Itis different from an intrauterine device (IUD). It is inserted into the upper part of the arm by a health care provider. Implants can be effective for up to 3 years. Progestin-only injections Progestin-only injections are injections of progestin, a synthetic form of the hormone progesterone. They are given every 3 months by a health care provider. control pills control pills are pills that contain hormones that prevent . They must be taken oncea day, preferably at the same time each day. A prescription is needed to use this method of contraception. control patch The control patch contains hormones that prevent . It is placed on the skin and mustbe changed once a week for three weeks and removed on the fourth week. A prescription is needed to use this method of contraception. Vaginal ring A vaginal ring contains hormones that prevent . It is placed in the vagina for three weeksand removed on the fourth week. After that, the process is repeated with a new ring. A prescriptionis needed to use this method of contraception. Emergency contraceptive Emergency contraceptives prevent after unprotected sex. They come in pill form and can betaken up to 5 days after sex. They work best the sooner they are taken after having sex. Most emergency contraceptives are available without a prescription. This method should not be used as your only form of control. Barrier methods Male condom A male condom is a thin sheath that is worn over the penis during sex. Condoms keep sperm from going inside a woman's body. They can be used with a sperm- killing substance (spermicide) to increase their effectiveness. They should be thrown away after one use. Female condom A female condom is a soft, loose-fitting sheath that is put into the vagina before sex. The condom keeps sperm from going inside a woman's body. They should be thrown away after one use. Diaphragm A diaphragm is a soft, dome-shaped barrier. It is inserted into the vagina before sex, along with aspermicide. The diaphragm blocks sperm from entering the uterus, and the spermicide kills sperm. A diaphragm should be left in the vagina for 6 8 hours after sex and removed within 24 hours. A diaphragm is prescribed and fitted by a health care provider. A diaphragm should be replaced every 1 2 years, after giving , after gaining more than 15 lb (6.8 kg), and after pelvic surgery. Cervical cap A cervical cap is a round, soft latex or plastic cup that fits over the cervix. It is inserted intothe vagina before sex, along with spermicide. It blocks sperm from entering the uterus. The cap should be left in place for 6 8 hours after sex and removed within 48 hours. A cervical cap must be prescribed and fitted by a health care provider. It should be replaced every 2 years. Sponge A sponge is a soft, circular piece of polyurethane foam with spermicide in it. The sponge helps block sperm from entering the uterus, and the spermicide kills sperm. To use it, you make it wet and then insert it into the vagina. It should be inserted before sex, left in for at least 6 hours after sex, and removed and thrown away within 30 hours. Spermicides Spermicides are chemicals that kill or block sperm from entering the cervix and uterus. They can come as a cream, jelly, suppository, foam, or tablet. A spermicide should be inserted into the vagina with an applicator at least 10 15 minutes before sex to allow time for it to work. The process must be repeated every time you have sex. Spermicides do not require a prescription. Intrauterine contraception Intrauterine device (IUD) An IUD is a T-shaped device that is put in a woman's uterus. There are two types: Hormone IUD.This type contains progestin, a synthetic form of the hormone progesterone. This type can stay in place for 3 5 years. Copper IUD.This type is wrapped in copper wire. It can stay in place for 10 years. Permanent methods of contraception Female tubal ligation In this method, a woman's fallopian tubes are sealed, tied, or blocked during surgery to prevent eggs from traveling to the uterus. Hysteroscopic sterilization In this method, a small, flexible insert is placed into each fallopian tube. The inserts cause scartissue to form in the fallopian tubes and block them, so sperm cannot reach an egg. The procedure takes about 3 months to be effective. Another form of control must be used during those 3 months. Male sterilization This is a procedure to tie off the tubes that carry sperm (vasectomy). After the procedure, the mancan still ejaculate fluid (semen). Another form of control must be used for 3 months after the procedure. Natural planning methods Natural family planning In this method, a couple does not have sex on days when the woman could become . Calendar method In this method, the woman keeps track of the length of each menstrual cycle, identifies the days when can happen, and does not have sex on those days. Ovulation method In this method, a couple avoids sex during ovulation. Symptothermal method This method involves not having sex during ovulation. The woman typically checks for ovulation by watching changes in her temperature and in the consistency of cervical mucus. Post-ovulation method In this method, a couple waits to have sex until after ovulation. Where to find more information Centers for Disease Control and Prevention: www.cdc.gov Summary Contraception, also called control, refers to methods or devices that prevent . Hormonal methods of contraception include implants, injections, pills, patches, vaginal rings, and emergency contraceptives. Barrier methods of contraception can include male condoms, female condoms, diaphragms, cervical caps, sponges, and spermicides. There are two types of IUDs (intrauterine devices). An IUD can be put in a woman's uterus to prevent for 3 5 years. Permanent sterilization can be done through a procedure for males and females. Natural family planning methods involve nothaving sex on days when the woman could become . This information is not intended to replace advice given to you by your health care provider. Make sure you discuss any questions you have with your health care provider. Document Revised: 02/17/2021 Document Reviewed: 02/17/2021 [employer] Patient Education 2022 [employer]. Follow Up Care 11/25/2022 11:18:37 With:SHILOH SKINNER, FLORIDALMA Quintero, URL Address: [address] [place] [address] [phone] When: Unknown [facility] 04-19-2023 Evaluation + Plan note Diagnostic Tests Pending * Semen Analysis Post Vasectomy 01/13/23 [facility] 03-30-2023 Hospital Discharge instructions Patient Education 12/24/2022 08:33:51 Vasectomy, Care After Vasectomy, Care After This sheet gives you information about how to care for yourself after your procedure. Your health care provider may also give you more specific instructions. If you have problems or questions, contact your health care provider. What can I expect after the procedure? After your procedure, it is common to have: Mild pain, swelling, redness, or discomfort in your scrotum. Some blood coming from your incisions or puncture sites for one or two days. Blood in your semen. Follow these instructions at home: Medicines Take yzts-thz-wnyqlog and prescription medicines only as told by your health care provider. Avoid taking NSAIDs such as aspirin and ibuprofen, because these medicines can make bleeding worse. Activity For the first 2 days after surgery, avoid physical activity and exercise that require a lot of energy. Ask your health care provider what activities are safe for you. Do not participate in sports or perform heavy physical labor until your pain has improved, or untilyour health care provider says it is okay. Do not ejaculate for at least 1 week after the procedure, or as long as directed. You may resume sexual activity 7 10 days after your procedure, or when your health care provider approves. Use a different method of control (contraception) until you have had test results thatconfirm that there is no sperm in your semen. Scrotal support Use scrotal support, such as a jock strap or underwear with a supportive pouch, as needed for one week after your procedure. If you feel discomfort in your scrotum, you may remove the scrotal support to see if the discomfortis relieved. Sometimes scrotal support can press on the scrotum and cause or worsen discomfort. If your skin gets irritated, you may add some germ-free (sterile), fluffed bandages or a clean washcloth to the scrotal support. General instructions Put ice on the injured area: ?Put ice in a plastic bag. ?Place a towel between your skin and the bag. ?Leave the ice on for 20 minutes, 2 3 times a day. Check your incisions or puncture sites every day for signs of infection. Check for: ?Redness, swelling, or pain. ?Fluid or blood. ?Warmth. ?Pus or a bad smell. Leave stitches (sutures) in place. The sutures will dissolve on their own and do not need to be removed. Keep all follow-up visits as told by your health care provider. This is important because you will need a test to confirm that there is no sperm in your semen. Multiple ejaculations are needed to clear out sperm that were beyond the vasectomy site. You will need one test result showing that there is no sperm in your semen before you can resume unprotected sex. This may take 2 4 months after your procedure. Do not drive for 24 hours if you were given a sedative to help you relax. Contact a health care provider if: You have redness, swelling, or more pain around your incision or puncture site, or in your scrotum area in general. You have bleeding from your incision or puncture site. You have pus or a bad smell coming from your incision or puncture site. You have a fever. Your incision or puncture site opens up. Get help right away if: You develop a rash. You have difficulty breathing. Summary After your procedure it is common to have mild pain, swelling, redness, or discomfort in your scrotum. Avoid physical activity and exercise that requires a lot of energy for the first 2 days after surgery. Put ice on the injured area. Leave the ice on for 20 minutes, 2 3 times a day. Do not drive for 24 hours if you were given a sedative to help you relax. This information is not intended to replace advice given to you by your health care provider. Make sure you discuss any questions you have with your health care provider. Document Released: 04/02/2006 Document Revised: 08/26/2018 Document Reviewed: 12/10/2017 [employer] Patient Education 2020 [employer]. Follow Up Care 11/25/2022 11:08:00 With:FLORIDALMA MATAMOROS PA-C, URL Address: [address] [place] [address] When: Unknown [facility] 2023 Reason for referral (narrative)* Reason 11/25/22 Referral for vasectomy Diagnosis 1 Vasectomy evaluation (Z30.9) Referral Organization [facility] Elliot Lakhani norm Referring Provider First Name Good Referring Provider Last Name Elliot Referring Provider Specialty Internal Me dicine Referred Organization [facility] Referred Provider ANNA WELDON Referred Address [address],[place], [place],[address] Referred Provider Specialty Urology Referral Priority Routine Referral Appointment Date 2022-11-25 General Notes Maria Teresa Garcia 01:04:17 PM >received today, notes locked, insurance card attached, referral faxed Maria Teresa Garcia 11/24/2022 09:50:33 AM >faxed first attempt letter Maria Teresa Garcia 11/26/2022 09:14:24 AM >faxed first request for consult notes Maria Teresa Garcia 12/01/2022 09:09:20 AM >RECEIVED NOTES AND SENT FOR REVIEW. CLOSING REFERRAL AT THIS TIME [employer] Other 2023 NoteChief Complaint New patient referral for vasectomy. HPI Staff Evaluation requested by Dr Good Zarate for Vasectomy Consultation. Pt is a new pt, never before seen in our office. Patient currently has 5 children. No urinary issues. History of Present Illness Tests reviewed: reviewed UA. I have reviewed the previous health record information and history for this patient from new pt paperwork. I have reviewed and verified the staff HPI to be accurate for this encounter. There have been no associated fever, chills, flank pain, or blood in the urine. Denies any urinary infections. Review of Systems PHQ Score Initial Depression Screen Score: 0 ROS - Provider Constitutional: denies weight loss, denies hot flashes. Eyes: denies eye problems. Gastrointestinal: denies nausea, denies vomiting. Cardiovascular: denies chest pain or angina. Integumentary: no dryness Musculoskeletal: denies musculoskeletal symptoms. ENMT: denies otolaryngeal symptoms. Respiratory: no shortness of breath. Heme/Lymph: denies easy bleeding tendency, denies easy bruising tendency. Psychiatric: no confusion, no anxiety. Genitourinary: See HPI. Physical Exam Vitals & Measurements BP: 142/80 HT: 71 in HT: 180 cm WT: 125 kg WT: 275 lb BMI: 38.58 General Appearance: alert, no distress, well nourished, well developed male. Head: normocephalic . Eyes: normal orbit and globe. ENMT: normal examination of external ears. Chest: symmetric chest rise, respirations non labored. Cardiovascular: regular rate and rhythm. Abdomen: soft, non distended, no tenderness, no mass or organomegaly, no hernia. Genitourinary: normal scrotum, normal testes, normal urethra, normal epididymis, normal vas deferens/spermatic cord - thick spermatic cord, mildly difficult to palpate Flank Pain: none. Bladder: nonpalpable. Penis: normal shaft, normal glans, circumcised Skin: warm, dry, no bruising. Psychiatric: cooperative, affect appropriate for age, normal judgement, euthymic mood. Assessment/Plan New patient here to discuss vasectomy. Overall healthy male. Acid reflux, no prior surgical history. Pt. states he has an umbilical hernia, asx. No routine medications. 1. Vasectomy evaluation (Z30.09: Encounter for other general counseling and advice on contraception) Pt. has 5 children, youngest is 2 months old. Educational pamphlet provided for pt's review. No urinary complaints, UA today neg. Will schedule Vasectomy. The procedural risks, benefits, details, and treatment alternatives of sterilization have been discussed with the patient today. He understands this procedure is considered permanent, even though vasectomy reversals can be performed. There is no guarantee of successful reversal resulting in , however. Risks discussed include bleeding, infection, failure with in about 1:2500, post-vasectomy syndrome (chronic pain in the testicle or scrotum), among others. Despite these risks, he wishes to proceed. He also understands that he is not considered sterileuntil a negative semen sample has been received after about 2-3 months after the vasectomy. Full informed consent has been obtained. Will order Local anesthesia. -Valium 10mg #1, Keflex 500mg BID start day prior, Tramadol 50mg #6 q6hr PRN -Shave site the night prior -Bring scrotal support day of procedure, use at least a week -50% of usual activity the day after -Ibuprofen/Tylenol for pain Follow-up With When Contact Information Shiraz PRADO, Anna Zepeda, URL, URO Additional Instructions: Schedule Vasectomy Patient Education Vasectomy, Care After I, Marline Downing, personally scribed for Dr. Weldon on 11/25/2022 10:36:34. . Documentation recorded by the scribe, Leslie Downing, accurately reflects the services(s) I performed and decisions made by me. Authenticated by Dr. Weldon on 11/25/2022 11:01:36. Problem List/Past Medical History Ongoing No chronic problems Historical No qualifying data Medications meloxicam 15 mg Tab, Not taking Allergies No Known Allergies No Known Medication Allergies Social History Alcohol Beer, 1-2 times per month, 11/25/2022 Tobacco Never (less than 100 in lifetime) Tobacco Use:. Never Smokeless Tobacco Use:., 11/25/2022 Immunizations Vaccine Date Status Comments SARS-CoV-2 (COVID-19) mRNA-1273 vaccine 09/22/2021 Recorded 2022-11-19: TPV40 SARS-CoV-2 (COVID-19) mRNA-1273 vaccine 08/23/2021 Recorded 2022-11-19: TPV40 influenza virus vaccine, inactivated 10/17/2016 Recorded diphtheria/pertussis, acel/tetanus adult 09/25/2016 Recorded diphtheria/pertussis, acel/tetanus adult 09/13/2014 Recorded Lab Results Ambulatory Point of Care Results Bilirubin Urine Dipstick: Negative (11/25/22 10:16:00) Blood Urine Dipstick: Negative (11/25/22 10:16:00) Glucose Urine Dipstick: Negative (11/25/22 10:16:00) Ketones Urine Dipstick: Negative (11/25/22 10:16:00 (more content not included)...[facility]Result Comment: Electronically Signed By: Anna Weldon MD\.br\Date and Time Signed: 11/25/22 11:01EST\.br\Electronically Co-Signed By: Marline Downing\.br\Date and Time Co-Signed: 11/25/22 10:41 [id number] Hospital Discharge instructions Patient Education 11/25/2022 10:33:50 Vasectomy, Care After Vasectomy, Care After This sheet gives you information about how to care for yourself after your procedure. Your health care provider may also give you more specific instructions. If you have problems or questions, contact your health care provider. What can I expect after the procedure? After your procedure, it is common to have: Mild pain, swelling, redness, or discomfort in your scrotum. Some blood coming from your incisions or puncture sites for one or two days. Blood in your semen. Follow these instructions at home: Medicines Take peed-msm-xqclniu and prescription medicines only as told by your health care provider. Avoid taking NSAIDs such as aspirin and ibuprofen, because these medicines can make bleeding worse. Activity For the first 2 days after surgery, avoid physical activity and exercise that require a lot of energy. Ask your health care provider what activities are safe for you. Do not participate in sports or perform heavy physical labor until your pain has improved, or untilyour health care provider says it is okay. Do not ejaculate for at least 1 week after the procedure, or as long as directed. You may resume sexual activity 7 10 days after your procedure, or when your health care provider approves. Use a different method of control (contraception) until you have had test results thatconfirm that there is no sperm in your semen. Scrotal support Use scrotal support, such as a jock strap or underwear with a supportive pouch, as needed for one week after your procedure. If you feel discomfort in your scrotum, you may remove the scrotal support to see if the discomfortis relieved. Sometimes scrotal support can press on the scrotum and cause or worsen discomfort. If your skin gets irritated, you may add some germ-free (sterile), fluffed bandages or a clean washcloth to the scrotal support. General instructions Put ice on the injured area: ?Put ice in a plastic bag. ?Place a towel between your skin and the bag. ?Leave the ice on for 20 minutes, 2 3 times a day. Check your incisions or puncture sites every day for signs of infection. Check for: ?Redness, swelling, or pain. ?Fluid or blood. ?Warmth. ?Pus or a bad smell. Leave stitches (sutures) in place. The sutures will dissolve on their own and do not need to be removed. Keep all follow-up visits as told by your health care provider. This is important because you will need a test to confirm that there is no sperm in your semen. Multiple ejaculations are needed to clear out sperm that were beyond the vasectomy site. You will need one test result showing that there is no sperm in your semen before you can resume unprotected sex. This may take 2 4 months after your procedure. Do not drive for 24 hours if you were given a sedative to help you relax. Contact a health care provider if: You have redness, swelling, or more pain around your incision or puncture site, or in your scrotum area in general. You have bleeding from your incision or puncture site. You have pus or a bad smell coming from your incision or puncture site. You have a fever. Your incision or puncture site opens up. Get help right away if: You develop a rash. You have difficulty breathing. Summary After your procedure it is common to have mild pain, swelling, redness, or discomfort in your scrotum. Avoid physical activity and exercise that requires a lot of energy for the first 2 days after surgery. Put ice on the injured area. Leave the ice on for 20 minutes, 2 3 times a day. Do not drive for 24 hours if you were given a sedative to help you relax. This information is not intended to replace advice given to you by your health care provider. Make sure you discuss any questions you have with your health care provider. Document Released: 04/02/2006 Document Revised: 08/26/2018 Document Reviewed: 12/10/2017 [employer] Patient Education 2019 [employer]. Follow Up Care 11/19/2022 09:50:53 With:Shiraz PRADO, Anna Zepeda, URL, URO Address: When: Unknown [facility] 02-20-2023 Evaluation note* Encounter Date Diagnosis Assessment Notes Treatment Notes Treatment Clinical Notes Oct, Umbilical hernia without obstruction and without gangrene (ICD-10 - K42.9) Instructed to avoid heavy lifting, straining. He was instructed to go to ER for severe obdominal pain associated w/ protrusion of umbilicus. Instructed to wear a binder when lifting. Oct, Obesity (BMI 30-39.9) (ICD-10 - E66.9) This patient has been instructed on a low-fat, high-fiber diet. They are instructed to reduce calories, portion sizes and snacks. It is recommended that they exercise for 30 minutes, 3-5 times weekly. Oct, Encounter for vasectomy counseling (ICD-10 - Z30.09) Refer to Urology [facility] Other 02-04-2021 NotePROCEDURE: XR FOOT RT MIN 3 VIEWS COMPARISON: None. HISTORY: Pain in right foot FINDINGS: BONES:No acute fracture or dislocation. Minimal enthesopathic spurring of the calcaneus at the Achilles tendon insertion. Corticated calcific density lateral to the cuboid, remote injury or unfused secondary ossification center. SOFT TISSUES:Negative. No visible soft tissue swelling. EFFUSION:None visible. OTHER: Negative. IMPRESSION: Minimal enthesopathic spurring of the calcaneus Electronically authenticated by: NEHA WRIGHT Date: 2020-10-31 11:31[facility] Future Appointments Appointment Date:12/25/2022 07:30:00 AM Scheduled Provider:Anna Weldon MD Location:[facility] Appointment Type:URO Procedure 30 min Appointment Date:01/13/2023 01:20:00 PM Scheduled Provider:FLORIDALMA MATAMOROS PA-C Location:[facility] Appointment Type:URO [facility] [facility] evaluation + Plan note Future Appointments Appointment Date:01/13/2023 01:20:00 PM Scheduled Provider:FLORIDALMA MATAMOROS PA-C Location:[facility] Appointment Type:URO Office Visit Diagnostic Tests Pending * Semen Analysis Post Vasectomy 12/25/22 [facility] Other Evaluation noteNo assessment information available [facility] Work Phone: [facility] Narrative - Reported* Type Description Date Medical History acid reflux Medical History COVID-19 Medical History Body mass index (BMI) of 40.0 to 49.9 Medical History Acute myofascial str ain of lumbosacral region, initial encounter Medical History Elevated blood pressure (not hyp ertension) Medical History Plantar fasciitis of right foot Medical History Foot pain, right Medical History GASTROCNEMIUS EQUINUS, RIGHT Surgical History throat stretching Surgical History DRAIN HAND TENDON SHEATH 2013 Surgical History 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 Hospitalization History see above surg hx [facility] Other Hospital course Narrative No data available for this section [facility] progress note No data available for this section [facility] Summary Purpose Family History No Family History Records Found Relationship Condition Age at Onset Recorded Date/T willy father Unknown Advance Directives No Advanced Directives Records Found Advance Directive Response Recorded Date/ Time Advance Directives No May 2:29pm Chief Complaint and Reason for Visit Chief Complaint Hernia Additional Source Comments (unrecognized sect ion and content) No Status Records FoundNo Status Records FoundNo Status Records Found INFORMATION SOURCE (unrecogn ized section and content) DATE CREATED AUTHOR 09/05/2021 [facility] DATE CREATED AUTHOR AUTHOR'S ORGANIZ ATION 01/14/2023 [facility] DATE CREATED AUTHOR AUTHOR'S ORGANIZ ATION 06/13/2024 [facility] EPIC Patient Care team informatio n (unrecognized section and content) Team Status: Active Member Role Status Dates Good Zarate DO Primary Care Provider Active Team Status: Inactive Member Role Status Dates Good Zarate DO Primary Care Provide r, Attending Provider Active Start: June 07, 2024 End: June 07, 2024 REASON FOR VISIT (unrecogniz ed section and content) VASECTOMY DISCUSSIONstrep th roatRight Hand/ Wrist Pain, Wellness examLab resultsEMG results1 month Goals (unrecognized section and content) Goals may be documented in a n alternate section FOR RECORDS PERTAINING TO PATIENTS WHO ARE OR HAVE BEEN ENROLLED IN A CHEMICAL DEPENDENCY/SUBSTANCEABUSE PROGRAM, SOME INFORMATION MAY BE OMITTED. This clinical summary was aggregated from multiple sources. Caution should be exercised in using it in the provision of clinical care. This summary normalizes information from multiple sources, and as a consequence, information in this document may materially change the coding, format and clinical context of patient data. In addition, data may be omitted in some cases. CLINICAL DECISIONS SHOULD BE BASED ON THE PRIMARY CLINICAL RECORDS. [facility] [employer] [facility]. provides no warranty or guarantee of the accuracy or completeness of information in this document.
[2024-08-29] MEDS: LACTATED RINGER'S SOLUTION 1,000 ML 50 ML IV ×2 (07:15→08:59)
--- NOTE | 2024-08-29 07:28 | W.PM.PROCNOT ---
Date of procedure: 08/29/24 Pre-op diagnosis: umbilical hernia Post-op diagnosis: same as pre-op Procedure: Robotic LLUVIA (transabdominal preperitoneal) ventral hernia repair with mesh and TAP block The patient was brought to the operating room and placed supine on the operating room table. Cardiopulmonary monitoring was initiated. General anesthesia was induced without any complication. A time-out was performed.? Pre-operative antibiotics were given. EPC cuffs were on the lower extremities. Both arms were tucked. The abdomen was prepped and draped in the usual sterile fashion. The abdomen was entered approximately 12-14 cm distal to the xiphoid process and to the left of the midline/umbilicus in the left lateral rectus sheath. To do this a skin incision was made. A 5mm 0 degree laparoscope was then introduced using an optical access trocar. Pneumoperitoneum was then established through this trocar. Once pneumoperitoneum was created 2 additional 8 mm DA Marshall ports were placed under direct visualization in the left lower and upper quadrants abdomen along the same lateral line. The 5mm optiview port was then upsized to a 8mm robotic port under direct visualization.?No injuries were evident. The 5mm port was upsized to an 8mm port. Prior to proceeding with the operation, an intraoperative TAP block was performed. ?Under visualization with the laparoscope, a needle was inserted percutaneously and, confirming that I was in the right plane, 30 mL of a mixture of Ropivacaine and Decadron were injected on both sides for a total of 60 ml. ?Good separation of the muscle planes was seen bilaterally indicating good placement of the anesthetic solution. The robot was then docked and a 30 degree robotic scope was placed into the abdomen.?The instruments were all placed within the abdominal cavity under direct visualization. The periumbilical defect was identified, was noted to be approximately 3 cm in diameter. The surrounding preperitoneal fatty tissue was then dissected free with electrocautery in order to skeletonize the fascial defect.?Once the abdominal contents were reduced a preperitoneal pocket was started approximately 6cm lateral to the hernia defect on the ipsilateral side. This pocket was carried out all the way to the hernia defect and 6cm lateral to the defect on the contralateral side. Care was taken to avoid holes in the peritoneum and ensure hemostasis. While the preperitoneal pocket was being created the hernia sac was reduced and dissected off the periumbilical defect.?The area was measured and the hernia defect was noted to be 3cm x 2cm. A 9cm round symbotex composite mesh was decided upon and opened. Once this was completed the insufflation was placed down to 10 mmHg and the umbilical defect was reapproximated using a 0 V-Loc stitch.?Once that was completed the 9cm piece of mesh was placed within the abdominal cavity.? The mesh was sutured circumferentially to the posterior rectus sheath using 3-0 V-Loc stitches. The mesh was noted to lie flat on the anterior surface of the abdomen without any crimpage and in good position with good overlap. Once the mesh was satisfactory placed,?the peritoneal pocket was closed with a 3-0 v-loc in a running fashion making sure to completely cover the mesh. No mesh was visible at the end of the peritoneal closure. The instruments and needles were removed and the robot was undocked. The remaining ports were then removed while insufflation was released through the robotic ports.? The port site skin was reapproximated using 4-0 Monocryl. Dermabond was placed over the incisions. The patient tolerated the procedure well. There were no complications.? Patient was extubated and taken to recovery in stable condition.? All sponge, instrument and needle counts were correct prior to skin closure. Anesthesia: FIDEA Surgeon: Luca Mckinnon Estimated blood loss (mL): 5 Pathology: none sent Condition: stable Disposition: PACU
[2024-08-29] MEDS: CEFAZOLIN SODIUM/DEXTROSE,ISO 2 GM/50 ML PIGGYBACK IV (07:37)
[2024-08-29] MEDS: BUPIVACAINE LIPOSOME/PF 266 MG/13.3 ML VIAL INJ (08:12)
[2024-08-29] MEDS: BUPIVACAINE HCL 0.25% PF 25 MG/10 ML VIAL 20 ML INJ (08:12)
[2024-08-29] MEDS: 0.9 % SODIUM CHLORIDE 10 ML VIAL 20 ML INJ (08:12)
--- NOTE | 2024-08-29 09:41 | PC.NURSE ---
IS AWARE PATIENT'S BLOOD PRESSURE IS SLIGHTLY ELEVATED.
--- NOTE | 2024-08-29 09:56 | PC.NURSE ---
PATIENT STATES NO PAIN JUST A DULL ACHE , BLOOD PRESSURE HAS IMPROVED. PATIENT IS VERY SLEEPY
[2024-08-29] MEDS: OXYCODONE HCL/ACETAMINOPHEN 5MG/325MG 1 TAB PO (10:27)
== END 2024-08-29 12:00 | disposition home or self-care (01) ==
PROVIDERS: PCP Internal Medicine; Visit Provider Surgery
PROC: (CPT 832; principal; 2024-08-29 07:30)
DX: K42.9 Umbilical hernia without obstruction or gangrene (principal); Z98.52 Vasectomy status; K21.9 Gastro-esophageal reflux disease without esophagitis
CPT/HCPCS: 49591; C1781; J0330; J0665; J0690; J1100; J1290; J1885; J2250; J2405; J2704; J2710; J3010